=== PATIENT | male | born 1980 | race American Indian/Alaskan Native ===

== ENCOUNTER 2016-09-30 12:55 | Inpatient (IN) | payer OTHER ==
[2016-09-30] MEDS ORDERED: Sodium Chloride 0.9% 1,000 ML IV STA (13:06)
[2016-09-30 13:30] LABS: BASO # 0.1 K/uL (0.0-0.2); BASO % 0.6 % (0.0-2.0); EOS # 0.3 K/uL (0.0-0.7); EOS % 2.4 % (0.0-4.0); HEMATOCRIT 44.7 % (35.0-51.0); LYMPH # 2.5 K/uL (1.0-4.3); LYMPH % 22.7 % (20.0-40.0); MEAN CELL VOLUME 94.2 fl (80.0-94.0); MEAN CORPUSCULAR HEMOGLOBIN 31.3 pg (27.0-31.0); MEAN CORPUSCULAR HGB CONC 33.2 g/dL (33.0-37.0); MEAN PLATELET VOLUME 8.7 fl (7.2-11.7); MONO % 9.3 % (0.0-10.0); NRBC % 0.1 % (0.0-0.0); WHITE BLOOD COUNT 10.8 K/uL (4.8-10.8)
[2016-09-30 13:32] LABS: ALB/GLOB RATIO 1.3 (1.0-2.1); ALKALINE PHOSPHATASE 70 U/L (38-126); ALT/SGPT 38 U/L (21-72); AST/SGOT 23 U/L (17-59); BLOOD UREA NITROGEN 12 mg/dl (9-20); CALCIUM 9.2 mg/dL (8.4-10.2); CARBON DIOXIDE 26 mmol/L (22-30); CHLORIDE 102 mmol/L (98-107); GFR AFRICAN-AMERICAN > 60; GLUCOSE,RANDOM 92 mg/dL (75-110); LIPASE 39 U/L (23-300); POTASSIUM 4.1 MMOL/L (3.6-5.0); SODIUM 142 mmol/l (132-148); TOTAL PROTEIN 7.6 G/DL (6.3-8.2)
--- NOTE | 2016-09-30 14:18 | ED PDOC ---
HPI: Abdomen Time Seen by Provider: 09/30/16 13:05 Chief Complaint (Nursing): Abdominal Pain Chief Complaint (Provider): Abdominal pain History Per: Patient History/Exam Limitations: no limitations Onset/Duration Of Symptoms: Days (4-5x) Current Symptoms Are (Timing): Still Present Severity: Moderate Location Of Pain/Discomfort: Periumbilical Associated Symptoms: denies: Fever, Vomiting, Diarrhea, Other (weakness, dizziness) Additional Complaint(s): 35 year old male patient with a pertinent medical history of an abscess of the left axilla and skin problems presents to the ED with complaints of lower abdominal wall pain that started 4-5x days ago. He reports that he felt a grape sized mass on his skin near his belly button and there is now redness, pain, and (he thinks) swelling around the umbilical area. He denies having a fever, weakness, dizziness, vomiting, and diarrhea. He also denies having exposure to anyone with abscesses or boils. PMD: Patient does no recall. Past Medical History Reviewed: Historical Data, Nursing Documentation, Vital Signs Vital Signs: Last Vital Signs Temp 98.2 F 09/30/16 12:57 Pulse 102 H 09/30/16 12:57 Resp 16 09/30/16 12:57 BP 131/87 09/30/16 12:57 Pulse Ox 98 09/30/16 14:31 - Medical History PMH: No Chronic Diseases - Surgical History Surgical History: Back Surgery - Family History Family History: States: Unknown Family Hx - Social History Current smoker - smoking cessation education provided: No Alcohol: Social Drugs: Cannabis - Allergies Allergies/Adverse Reactions: Allergies Allergy/AdvReac Type Severity Reaction Status Date / Time No Known Allergies Allergy Verified 09/30/16 12:57 Review of Systems ROS Statement: Except As Marked, All Systems Reviewed And Found Negative Constitutional: Negative for: Fever, Weakness Gastrointestinal: Positive for: Abdominal Pain (lower abdominal wall). Negative for: Vomiting, Diarrhea Neurological: Negative for: Dizziness Physical Exam - Reviewed Nursing Documentation Reviewed: Yes Vital Signs Reviewed: Yes - Physical Exam Appears: Positive for: Well, Non-toxic, No Acute Distress Head Exam: Positive for: ATRAUMATIC, NORMOCEPHALIC Skin: Positive for: Normal Color Cardiovascular/Chest: Positive for: Regular Rate, Rhythm, Chest Non Tender Respiratory: Positive for: Normal Breath Sounds. Negative for: Respiratory Distress Gastrointestinal/Abdominal: Positive for: Tenderness (mild tenderness around umbilicus), Guarding (umbilical area), Other (on abdominal wall 7cm surrounding umbilicus there is erythema) Neurologic/Psych: Positive for: Alert, Oriented (3x) - Laboratory Results Result Diagrams: 09/30/16 13:10 09/30/16 13:10 - ECG O2 Sat by Pulse Oximetry: 98 (RA) Pulse Ox Interpretation: Normal Medical Decision Making Medical Decision Makin:05 Initial impression: 35 year old male with lower abdominal wall pain, rule out abdominal wall abscess. Initial plan: * CT abd and pelvis with IV contrast only * CMP * lipase * CBC with differential * sodium chloride 1,000ml IV 1,000mls/hr * toradol 30mg IV * urinalysis * reevaluation Scribe Attestation: Documented by Yara Clinton, acting as a scribe for Sal Junior III, MD. Provider Scribe Attestation: All medical record entries made by the Scribe were at my direction and personally dictated by me. I have reviewed the chart and agree that the record accurately reflects my personal performance of the history, physical exam, medical decision making, and the department course for this patient. I have also personally directed, reviewed, and agree with the discharge instructions and disposition. Disposition - Clinical Impression Clinical Impression: Cellulitis of abdominal wall - Patient ED Disposition Is Patient to be Admitted: Transfer of Care Counseled Patient/Family Regarding: Studies Performed - Disposition Disposition: Transfer of Care Disposition Time: 14:46 Condition: STABLE Patient Signed Over To: Devin Magallon Handoff Comments: pending CT report and dispo/re-eval
[2016-09-30] MEDS ORDERED: Piperacillin/Tazobact 4.5 GM in Sodium Chloride 0.9% 100 ML IVPB STA (14:31)
[2016-09-30 15:07] LABS: RBC URINE 3 /hpf (0-3); URINE BACTERIA RARE (<OCC); URINE BILIRUBIN NEGATIVE (NEGATIVE); URINE BLOOD NEGATIVE (NEGATIVE); URINE COLOR YELLOW (YELLOW); URINE GLUCOSE (UA) NEG (Normal); URINE KETONE TRACE mg/dL (NEGATIVE); URINE LEUKOCYTE ESTERASE NEG Leu/uL (Negative); URINE PROTEIN 30 mg/dL (NEGATIVE); URINE UROBILINOGEN 0.2-1.0 mg/dL (0.2-1.0); WBC URINE 3 /hpf (0-5)
[2016-09-30] MEDS ORDERED: Iohexol 300 100 ML IJ ONE (17:23)
[2016-09-30] MEDS ORDERED: Sodium Chloride 0.9% 50 ML IV ONE (17:24)
--- NOTE | 2016-09-30 18:03 | CT ---
PROCEDURE: CT Abdomen and Pelvis with contrast HISTORY: abdominal wall cellulitis r/o abscess COMPARISON: None. TECHNIQUE: Contrast dose: 100 cc Radiation dose: Total exam DLP = 1331 mGy-cm. FINDINGS: LOWER THORAX: Evaluation of the lung bases reveals mild subsegmental atelectasis. No infiltrate or nodule is seen. No pericardial effusion is seen. No pleural effusion is noted. Distal esophagus is unremarkable. LIVER: Minor fatty infiltration is seen. No focal liver mass or intrahepatic ductal dilatation is noted. GALLBLADDER AND BILE DUCTS: Unremarkable. PANCREAS: Unremarkable. No gross lesion or ductal dilatation. SPLEEN: Unremarkable. ADRENALS: Unremarkable. No mass. KIDNEYS AND URETERS: Unremarkable. No hydronephrosis. No solid mass. VASCULATURE: Unremarkable. No aortic aneurysm. BOWEL: Unremarkable. No obstruction. No gross mural thickening. No pericolonic inflammatory change is seen. No small bowel dilatation or small bowel obstruction is noted. APPENDIX: Normal appendix. PERITONEUM: Unremarkable. No free fluid. No free air. LYMPH NODES: Unremarkable. No enlarged lymph nodes. BLADDER: Unremarkable. REPRODUCTIVE: Unremarkable. BONES: Minor degenerative changes are seen in the spine. Bony structures are otherwise unremarkable. OTHER FINDINGS: Evaluation of the anterior abdominal wall with special attention to the umbilical region reveals evidence of moderate inflammatory change and thickening in the umbilical and periumbilical region extending towards the anterior abdominal wall. There is a small subtle area of low density fluid seen in this region with small peripheral enhancement on axial images 106 through 110 and seen on sagittal images 91 through 94. This measures 2.5 centimeters x 1.5 centimeters by 1.4 centimeters. This is consistent with small abscess in this region. Induration in the subcutaneous fat extends both superiorly and inferiorly from this region. No appreciable bowel is noted extending from this area. Minimal hernia is seen in this region. No abnormal collection is seen in the rectus musculature. IMPRESSION: Periumbilical subcutaneous cellulitis with moderate inflammatory change. There is a small peripherally enhancing low-density abscess seen posteriorly within the area of inflammation at the level of the umbilicus. There may be some subtle vasculature extending from the intra abdominal region to this area on the sagittal images. Small amount of thrombus accounting for the low density is not excluded. Remainder of the examination is unremarkable. No bowel is seen extending into this region of the umbilicus. No inflammatory process in the abdomen or pelvis.
--- NOTE | 2016-09-30 18:38 | ED PDOC ---
- Laboratory Results Result Diagrams: 09/30/16 13:10 09/30/16 13:10 - ECG O2 Sat by Pulse Oximetry: 98 (RA) Disposition - Clinical Impression Clinical Impression: Abdominal wall cellulitis, Abscess of abdominal wall - POA Present On Arrival: None - Disposition Disposition: Hospitalized as Observation Patient Disposition Time: 18:38 Condition: STABLE
--- NOTE | 2016-09-30 20:24 | CP.PCM.HP ---
History of Present Illness - History of Present Illness History of Present Illness: 35 yo male with no significant PMH came in because of mid-umbilical pain since 3 days ago ago accompanied with redness on iraj-umbilical area. He claimed it started as a small cyst above the umbilicus 4 days ago followed with swelling, redness and pain the next day. Denied fever or chills. Present on Admission - Present on Admission Any Indicators Present on Admission: No History of DVT/PE: No History of Uncontrolled Diabetes: No Urinary Catheter: No Decubitus Ulcer Present: No Review of Systems - Review of Systems All systems: reviewed and no additional remarkable complaints except (aside from those mentioned above, 12 point system review were negative by me) Past Patient History - Infectious Disease Hx of Infectious Diseases: None - Tetanus Immunizations Tetanus Immunization: Unknown - Past Medical History & Family History Past Medical History?: No - Past Social History Alcohol: Social Drugs: Cannabis - PSYCHIATRIC Hx Substance Use: No - SURGICAL HISTORY Hx Surgeries: Yes - ANESTHESIA Hx Anesthesia: Yes Meds Allergies/Adverse Reactions: Allergies Allergy/AdvReac Type Severity Reaction Status Date / Time No Known Allergies Allergy Verified 09/30/16 12:57 Physical Exam - Constitutional Appears: No Acute Distress - Head Exam Head Exam: ATRAUMATIC - Eye Exam Eye Exam: absent: Scleral icterus - ENT Exam ENT Exam: Mucous Membranes Moist - Neck Exam Neck exam: Negative for: Meningismus - Respiratory Exam Respiratory Exam: absent: Rhonchi, Wheezes, Respiratory Distress - Cardiovascular Exam Cardiovascular Exam: REGULAR RHYTHM, +S1, +S2 - GI/Abdominal Exam GI & Abdominal Exam: Soft, Tenderness (redness and tenderness on iraj-umbilical area) - Rectal Exam Rectal Exam: Deferred - Extremities Exam Extremities exam: Negative for: pedal edema - Back Exam Back exam: absent: tenderness - Neurological Exam Neurological exam: Alert, Oriented x3 - Psychiatric Exam Psychiatric exam: Normal Affect - Skin Skin Exam: Erythema (iraj-umbilical area) Results - Vital Signs Recent Vital Signs: Last Vital Signs Temp 97.6 F 09/30/16 19:29 Pulse 62 09/30/16 19:29 Resp 16 09/30/16 19:29 BP 133/75 09/30/16 19:29 Pulse Ox 100 09/30/16 19:29 - Labs Result Diagrams: 09/30/16 13:10 09/30/16 13:10 Assessment & Plan (1) Abdominal wall cellulitis Status: Acute Comment: place on observation. keep NPO from midnight. surgical consult called by ER, for I&D in am. blood culture x 2. continue Zosyn 3.375gm IV q 6hrs. Morphine 2mg IV q 4hrs prn for pain
--- NOTE | 2016-09-30 21:05 | CP.PCM.CON ---
<Antonino Peralta - Last Filed: 09/30/16 21:00> History of Present Illness - History of Present Illness History of Present Illness: General Surgery Consult Re: periumbilical abscess HPI: 35M presenting with periumbilical pain x 3 days. Progressively worse, with increasing redness up to 10 cm in diameter. First noticed a bume 4 days ago, and then the pain and erythema started. Denies any other symptoms. Pt is currently feeling much better, less tender, with less erythema. PMH: Denies PSH: Denies SH: No tobacco, EtOH. Occasional THC All: NKDA Meds: Denies Review of Systems - Review of Systems All systems: reviewed and no additional remarkable complaints except (as per HPI ) Past Patient History - Infectious Disease Hx of Infectious Diseases: None - Tetanus Immunizations Tetanus Immunization: Unknown - Past Medical History & Family History Past Medical History?: No - Past Social History Alcohol: Social Drugs: Cannabis - PSYCHIATRIC Hx Substance Use: No - SURGICAL HISTORY Hx Surgeries: Yes - ANESTHESIA Hx Anesthesia: Yes Meds Allergies/Adverse Reactions: Allergies Allergy/AdvReac Type Severity Reaction Status Date / Time No Known Allergies Allergy Verified 09/30/16 12:57 - Medications Medications: Current Medications Sodium Chloride (Sodium Chloride 0.9%) 1,000 mls @ 100 mls/hr IV .Q10H [facility] Piperacillin Sod/Tazobactam (Sod 3.375 gm/ Sodium Chloride) 100 mls @ 100 mls/ hr IVPB Q6 [facility] Morphine Sulfate (Morphine) 2 mg IVP Q4 PRN PRN Reason: Pain, moderate (4-7) Physical Exam - Constitutional Appears: Non-toxic, No Acute Distress - Head Exam Head Exam: ATRAUMATIC, NORMOCEPHALIC - Eye Exam Eye Exam: EOMI. absent: Scleral icterus - ENT Exam ENT Exam: Mucous Membranes Moist Additional comments: trachea midline - Respiratory Exam Respiratory Exam: NORMAL BREATHING PATTERN. absent: Respiratory Distress - Cardiovascular Exam Cardiovascular Exam: RRR, +S1, +S2 - GI/Abdominal Exam GI & Abdominal Exam: Mass (small, deep in umbilicus with faint TTP), Soft. absent: Distended, Firm, Guarding, Rigid, Tenderness Additional comments: currently faint erythema - Rectal Exam Rectal Exam: Deferred - Extremities Exam Extremities exam: Positive for: normal capillary refill. Negative for: calf tenderness - Back Exam Back exam: absent: CVA tenderness (L), CVA tenderness (R) - Neurological Exam Neurological exam: Alert, Oriented x3 - Psychiatric Exam Psychiatric exam: Normal Affect, Normal Mood - Skin Skin Exam: Dry, Warm Results - Vital Signs Recent Vital Signs: Last Vital Signs Temp 97.6 F 09/30/16 19:29 Pulse 62 09/30/16 19:29 Resp 16 09/30/16 19:29 BP 133/75 09/30/16 19:29 Pulse Ox 100 09/30/16 19:29 - Labs Result Diagrams: 09/30/16 13:10 09/30/16 13:10 - Imaging and Cardiology CT scan - abdomen Status: Image reviewed by me, Report reviewed by me Assessment & Plan - Assessment and Plan (Free Text) Assessment: 35M with periumbilical abscess Plan: NPO p MN Consent in chart Abx IVF Zofran Morphine To OR tomorrow D/W Dr. Esvin Peralta PGY3 <Johan Mcallister B - Last Filed: 10/03/16 17:02> Results - Vital Signs Recent Vital Signs: Last Vital Signs Temp 98.9 F 10/02/16 07:59 Pulse 65 10/02/16 07:59 Resp 20 10/02/16 07:59 BP 136/88 10/02/16 07:59 Pulse Ox 98 10/02/16 07:59 - Labs Result Diagrams: 10/02/16 05:50 10/01/16 05:55 Attending/Attestation - Attestation I have personally seen and examined this patient.: Yes I have fully participated in the care of the patient.: Yes I have reviewed all pertinent clinical information: Yes Notes (Text): 10/03/16 16:54 Pt was seen and examined at bedside on 10/01/16 Agree with above note and assessment. Pt with Abdominal wall cellulitis and abscess Pt would need I & D of abscess with Debridement of Abdominal wall Consent Plan d.w pt in detail Risk and benefit explained in detail.
[2016-10-01] MEDS: Piperacillin/Tazobact 3.375 GM in Sodium Chloride 0.9% 100 ML IVPB SCH ×5 (00:27→21:56)
[2016-10-01] MEDS: Sodium Chloride 0.9% 1,000 ML IV SCH ×2 (00:40→08:57)
[2016-10-01 07:11] LABS: BASO # 0.1 K/uL (0.0-0.2); BASO % 0.7 % (0.0-2.0); EOS # 0.3 K/uL (0.0-0.7); EOS % 3.2 % (0.0-4.0); HEMATOCRIT 40.2 % (35.0-51.0); LYMPH # 2.8 K/uL (1.0-4.3); LYMPH % 27.8 % (20.0-40.0); MEAN CELL VOLUME 93.9 fl (80.0-94.0); MEAN PLATELET VOLUME 8.9 fl (7.2-11.7); MONO # 1.1 K/uL (0.0-0.8); MONO % 10.9 % (0.0-10.0); NEUT # 5.7 K/uL (1.8-7.0); NEUT % 57.4 % (50.0-75.0); NRBC % 0.1 % (0.0-0.0); RED CELL DISTRIBUTION WIDTH 13.2 % (11.5-14.5); WHITE BLOOD COUNT 9.9 K/uL (4.8-10.8)
[2016-10-01 07:26] LABS: PARTIAL THROMBOPLASTIN TIME 27.1 SECONDS (23.3-32.5)
[2016-10-01 07:35] LABS: BLOOD UREA NITROGEN 13 mg/dl (9-20); CALCIUM 8.7 mg/dL (8.4-10.2); CARBON DIOXIDE 28 mmol/L (22-30); CHLORIDE 102 mmol/L (98-107); GFR AFRICAN-AMERICAN > 60; GLUCOSE,RANDOM 89 mg/dL (75-110); POTASSIUM 4.2 MMOL/L (3.6-5.0); SODIUM 142 mmol/l (132-148)
[2016-10-01] MEDS ORDERED: Propofol 10 mg/ml Inj (20 ML) ONE (13:26)
[2016-10-01] MEDS ORDERED: Midazolam 2 MG/2 ML VIAL ONE (13:27)
[2016-10-01] MEDS ORDERED: Lidocaine 1% Inj (20ml) ONE (13:29)
[2016-10-01] MEDS ORDERED: Bupivacaine 0.5% Inj(30mL) ONE (13:29)
[2016-10-01] MEDS ORDERED: Lidocaine 1% Inj (20ml) IJ ONE (13:55)
[2016-10-01] MEDS ORDERED: Bupivacaine 0.5% Inj(30mL) IJ ONE (13:55)
--- NOTE | 2016-10-01 15:00 | PCM.SURG1 ---
Surgeon's Initial Post Op Note - Surgeon's Notes Surgeon: Esvin Creche Attendant: David PGY-2, Clint PGY-1 Type of Anesthesia: General LMA Pre-Operative Diagnosis: iraj-umbilical abscess Operative Findings: see operative report Post-Operative Diagnosis: see operative report Operation Performed: I&D of abscess. excision of possible urachal cyst wall. debridement of cyst wall Specimen/Specimens Removed: debrided urachal cyst wall. skin Estimated Blood Loss: EBL {In ML}: 15 Blood Products Given: N/A Drains Used: No Drains Post-Op Condition: Good Date of Surgery/Procedure: 10/01/16 Time of Surgery/Procedure: 14:00
[2016-10-01] MEDS ORDERED: Lactated Ringer's 1,000 ML IV ONE (15:03)
--- NOTE | 2016-10-01 15:59 | OP ---
PROCEDURE DATE: 10/01/2016 PREOPERATIVE DIAGNOSIS: Abdominal wall cellulitis and abscess with a possible underlying infected cy st. POSTOPERATIVE DIAGNOSES: 1. Abdominal wall abscess. 2. Abdominal wall cellulitis. 3. Infected urachal cyst. PROCEDURE DONE: 1. Incision and drainage of the abscess. 2. Debridement of the abdominal wall, approximately 3 x 3 cm size. 3. Excision of urachal cyst, approximately 4 x 5 cm size. SURGEON: Dr. Mcallister ANESTHESIA: General anesthesia with LMA. ESTIMATED BLOOD LOSS: EBL is around 10 mL. DRAINS: None. PATHOLOGY: The pus was sent for culture and sensitivity. Debrided abdominal wall was sent for the p athology. The cyst wall was sent for the pathology. INTRAOPERATIVE FINDINGS: The patient had approximately 4 x 5 cm infected urachal cyst with celluliti s and abscess of the abdominal wall. INTRAOPERATIVE STEPS: This 35-year-old male was diagnosed with abdominal wall cellulitis with absces s with possible underlying cyst and patient was brought to the OR, placed supine on the operating tab le. After induction of the anesthesia, abdomen was prepped and draped in the usual sterile fashion. The vertical midline incision was made in the umbilical area of approximately 5 cm size. The 2 late ral flaps were created and the infected cyst with abscess was identified. The abscess was drained. Pus was sent for the culture and sensitivity. The abdominal wall surrounding the abscess was debride d and it was sent off the table for the pathology and the cyst wall was completely excised up to the root of the umbilicus. After proper irrigation, the hemostasis was achieved and wound was closed in 2 layers, the subQ with 2-0 Vicryl, skin with a 4-0 Monocryl and dry sterile dressing was applied. T he patient tolerated procedure well. Count of instruments and gauze was correct. There was no appar ent complication. Johan Mcallister MD cc: [id number] TT: 10/01/2016 15:59:09
--- NOTE | 2016-10-01 16:38 | CP.PCM.PN ---
Subjective - Date & Time of Evaluation Date of Evaluation: 10/01/16 Time of Evaluation: 17:00 - Subjective Subjective: Patient was seen and evaluated bedside. Feeling nauseated and had 1 episode of vomiting. Still with some periumbilical pain Hemodynamicallty stable, afebrile Objective - Vital Signs/Intake and Output Vital Signs (last 24 hours): Temp Pulse Resp BP Pulse Ox 99 F 85 20 177/97 H 94 L 10/01/16 15:03 10/01/16 15:03 10/01/16 15:03 10/01/16 15:03 10/01/16 15:03 - Medications Medications: Current Medications Sodium Chloride (Sodium Chloride 0.9%) 1,000 mls @ 100 mls/hr IV .Q10H [facility] Last Admin: 10/01/16 08:57 Dose: 100 mls/hr Piperacillin Sod/Tazobactam (Sod 3.375 gm/ Sodium Chloride) 100 mls @ 100 mls/ hr IVPB Q6 [facility] Last Admin: 10/01/16 08:59 Dose: 100 mls/hr Lactated Ringer's (Lactated Ringer's) 1,000 mls @ 50 mls/hr IV .Q20H [facility] Morphine Sulfate (Morphine) 2 mg IVP Q4 PRN PRN Reason: Pain, moderate (4-7) Last Admin: 10/01/16 00:44 Dose: 2 mg Morphine Sulfate (Morphine) 2 mg IVP Q10M PRN PRN Reason: Pain, severe (8-10) Stop: 10/01/16 17:09 Last Admin: 10/01/16 16:00 Dose: 2 mg Ondansetron HCl (Zofran Inj) 4 mg IVP Q4 PRN PRN Reason: Nausea/Vomiting - Labs Labs: 10/01/16 05:55 10/01/16 05:55 PT 10.7 SECONDS (9.6-11.2) 10/01/16 05:55 INR 1.03 (0.92-1.08) 10/01/16 05:55 APTT 27.1 SECONDS (23.3-32.5) 10/01/16 05:55 - Constitutional Appears: Non-toxic, No Acute Distress - Head Exam Head Exam: ATRAUMATIC, NORMAL INSPECTION, NORMOCEPHALIC - Eye Exam Eye Exam: EOMI, Normal appearance, PERRL Pupil Exam: NORMAL ACCOMODATION - ENT Exam ENT Exam: Mucous Membranes Moist, Normal Exam - Neck Exam Neck Exam: Full ROM, Normal Inspection - Respiratory Exam Respiratory Exam: Clear to Ausculation Bilateral, NORMAL BREATHING PATTERN. absent: Rales, Rhonchi, Wheezes - Cardiovascular Exam Cardiovascular Exam: REGULAR RHYTHM, RRR, +S1, +S2. absent: JVD - GI/Abdominal Exam GI & Abdominal Exam: Soft, Tenderness (with palpation superior to umbilicus), Normal Bowel Sounds. absent: Distended, Guarding, Rebound Additional comments: periumbilical dressing in place - Rectal Exam Rectal Exam: Deferred - Extremities Exam Extremities Exam: Full ROM, Normal Capillary Refill, Normal Inspection. absent : Calf Tenderness, Pedal Edema - Back Exam Back Exam: NORMAL INSPECTION - Neurological Exam Neurological Exam: Alert, Awake, CN II-XII Intact, Oriented x3 - Psychiatric Exam Psychiatric exam: Normal Affect, Normal Mood - Skin Skin Exam: Dry, Intact, Normal Color, Warm Assessment and Plan - Assessment and Plan (Free Text) Assessment: 35 yo male with no significant PMH came in because of mid-umbilical pain since 3 days ago ago accompanied with redness on iraj-umbilical area. He claimed it started as a small cyst above the umbilicus 4 days ago followed with swelling, redness and pain the next day. Denied fever or chills. Patient admitted for abdominal wall abscess and cellulitis and started on IV antbiotics. surgery consulted 1. Abdominal wall abscess and cellulitis to periumbilical area s/p I& D of abscess and urachal cyst excision Continue Zosyn IV and start Vanco Continue pain management Zofran PRN for nausea possible d/c in AM
[2016-10-01] MEDS: Lactated Ringer's 1,000 ML IV SCH (17:24)
[2016-10-02] MEDS: Piperacillin/Tazobact 3.375 GM in Sodium Chloride 0.9% 100 ML IVPB SCH ×2 (04:39→09:29)
[2016-10-02 06:43] LABS: HEMATOCRIT 41.3 % (35.0-51.0); MEAN CELL VOLUME 93.5 fl (80.0-94.0); MEAN CORPUSCULAR HEMOGLOBIN 31.2 pg (27.0-31.0); MEAN CORPUSCULAR HGB CONC 33.4 g/dL (33.0-37.0); WHITE BLOOD COUNT 11.1 K/uL (4.8-10.8)
[2016-10-02 06:59] VITALS: O2SAT 98
--- NOTE | 2016-10-02 07:18 | CP.PCM.PN ---
Subjective - Date & Time of Evaluation Date of Evaluation: 10/02/16 Time of Evaluation: 06:45 - Subjective Subjective: GENERAL SURGERY NOTE FOR DR. MCALLISTER: 35 yo male pt seen at bedside this morning 1 day s/p I&D of abscess and excision of urachal cyst. Pt seen resting comfortably in bed at time of visit. Reports 1 episode of vomiting last night after drinking a pepsi. Denies any subsequent nausea or vomiting overnight. Admits to some mild abdominal pain today, but says pain meds are helping. Tolerating diet, passing flatus. Denies f /c/sob. Denies any other problems at this time. Objective - Vital Signs/Intake and Output Vital Signs (last 24 hours): Temp Pulse Resp BP Pulse Ox 98.7 F 59 L 19 144/87 98 10/02/16 05:30 10/02/16 05:30 10/02/16 05:30 10/02/16 05:30 10/02/16 05:30 - Medications Medications: Current Medications Sodium Chloride (Sodium Chloride 0.9%) 1,000 mls @ 100 mls/hr IV .Q10H [facility] Last Admin: 10/01/16 08:57 Dose: 100 mls/hr Piperacillin Sod/Tazobactam (Sod 3.375 gm/ Sodium Chloride) 100 mls @ 100 mls/ hr IVPB Q6 [facility] Last Admin: 10/02/16 04:39 Dose: 100 mls/hr Lactated Ringer's (Lactated Ringer's) 1,000 mls @ 50 mls/hr IV .Q20H [facility] Last Admin: 10/01/16 17:24 Dose: 50 mls/hr Vancomycin HCl 1 gm/ Sodium (Chloride) 250 mls @ 166.667 mls/hr IVPB DAILY [facility] Last Admin: 10/01/16 17:55 Dose: 166.667 mls/hr Morphine Sulfate (Morphine) 2 mg IVP Q4 PRN PRN Reason: Pain, moderate (4-7) Last Admin: 10/01/16 17:19 Dose: 2 mg Ondansetron HCl (Zofran Inj) 4 mg IVP Q4 PRN PRN Reason: Nausea/Vomiting - Labs Labs: 10/02/16 05:50 PT 10.7 SECONDS (9.6-11.2) 10/01/16 05:55 INR 1.03 (0.92-1.08) 10/01/16 05:55 APTT 27.1 SECONDS (23.3-32.5) 10/01/16 05:55 - Constitutional Appears: Well, Non-toxic, No Acute Distress - Head Exam Head Exam: ATRAUMATIC, NORMAL INSPECTION - Eye Exam Eye Exam: EOMI, Normal appearance - Respiratory Exam Respiratory Exam: NORMAL BREATHING PATTERN. absent: Respiratory Distress - Cardiovascular Exam Cardiovascular Exam: REGULAR RHYTHM - GI/Abdominal Exam GI & Abdominal Exam: Soft, Tenderness (slight iraj-umbilical tenderness ). absent: Distended, Firm, Guarding, Rigid Additional comments: Bandage c/d/i to umbilicus, no drainage noted - Neurological Exam Neurological Exam: Alert, Awake, Oriented x3 - Psychiatric Exam Psychiatric exam: Normal Affect, Normal Mood - Skin Skin Exam: Normal Color, Warm Assessment and Plan - Assessment and Plan (Free Text) Assessment: 35 yo male patient 1 day s/p I&D of abscess and excision of urachal cyst. Plan: -Pt seen and evaluated at bedside. -VSS, afebrile -Cleared for discharge home per surgery -Recommend d/c on po Augmentin -F/u w/ Dr. Mcallister in the office. -Plan discussed w/ Dr. Mcallister -Buffy Roque, PGY-1
[2016-10-02 08:00] VITALS: BP 136/88; PULSE 65; RESP 20; TEMP 98.9
[2016-10-02] MEDS: Lactated Ringer's 1,000 ML IV SCH (12:40)
[2016-10-02] MEDS: Sodium Chloride 0.9% 1,000 ML IV SCH (12:40)
--- NOTE | 2016-10-02 13:37 | CP.PCM.DIS ---
Provider - Provider Date of Admission: 10/01/16 18:39 Attending physician: Bryan Sanchez MD Consults: Surgery consult Time Spent in preparation of Discharge (in minutes): 15 Hospital Course - Lab Results Lab Results: Most Recent Lab Values WBC 11.1 K/uL (4.8-10.8) H 10/02/16 05:50 RBC 4.42 Mil/uL (4.40-5.90) 10/02/16 05:50 Hgb 13.8 g/dL (12.0-18.0) 10/02/16 05:50 Hct 41.3 % (35.0-51.0) 10/02/16 05:50 MCV 93.5 fl (80.0-94.0) 10/02/16 05:50 MCH 31.2 pg (27.0-31.0) H 10/02/16 05:50 MCHC 33.4 g/dL (33.0-37.0) 10/02/16 05:50 RDW 13.0 % (11.5-14.5) 10/02/16 05:50 Plt Count 228 K/uL (130-400) 10/02/16 05:50 MPV 8.9 fl (7.2-11.7) 10/01/16 05:55 Neut % (Auto) 57.4 % (50.0-75.0) 10/01/16 05:55 Lymph % (Auto) 27.8 % (20.0-40.0) 10/01/16 05:55 [place] % (Auto) 10.9 % (0.0-10.0) H 10/01/16 05:55 Eos % (Auto) 3.2 % (0.0-4.0) 10/01/16 05:55 Baso % (Auto) 0.7 % (0.0-2.0) 10/01/16 05:55 Neut # 5.7 K/uL (1.8-7.0) 10/01/16 05:55 Lymph # 2.8 K/uL (1.0-4.3) 10/01/16 05:55 [place] # 1.1 K/uL (0.0-0.8) H 10/01/16 05:55 Eos # 0.3 K/uL (0.0-0.7) 10/01/16 05:55 Baso # 0.1 K/uL (0.0-0.2) 10/01/16 05:55 PT 10.7 SECONDS (9.6-11.2) 10/01/16 05:55 INR 1.03 (0.92-1.08) 10/01/16 05:55 APTT 27.1 SECONDS (23.3-32.5) 10/01/16 05:55 Sodium 142 mmol/l (132-148) 10/01/16 05:55 Potassium 4.2 MMOL/L (3.6-5.0) 10/01/16 05:55 Chloride 102 mmol/L (98-107) 10/01/16 05:55 Carbon Dioxide 28 mmol/L (22-30) 10/01/16 05:55 Anion Gap 16 (10-20) 10/01/16 05:55 BUN 13 mg/dl (9-20) 10/01/16 05:55 Creatinine 0.9 mg/dL (0.8-1.5) 10/01/16 05:55 Est GFR ( Amer) > 60 10/01/16 05:55 Est GFR (Non-Af Amer) > 60 10/01/16 05:55 Random Glucose 89 mg/dL (75-110) 10/01/16 05:55 Calcium 8.7 mg/dL (8.4-10.2) 10/01/16 05:55 Total Bilirubin 2.0 mg/dl (0.2-1.3) H 09/30/16 13:10 AST 23 U/L (17-59) 09/30/16 13:10 ALT 38 U/L (21-72) 09/30/16 13:10 Alkaline Phosphatase 70 U/L (38-126) 09/30/16 13:10 Total Protein 7.6 G/DL (6.3-8.2) 09/30/16 13:10 Albumin 4.3 g/dL (3.5-5.0) 09/30/16 13:10 Globulin 3.3 gm/dL (2.2-3.9) 09/30/16 13:10 Albumin/Globulin Ratio 1.3 (1.0-2.1) 09/30/16 13:10 Lipase 39 U/L (23-300) 09/30/16 13:10 Urine Color Yellow (YELLOW) 09/30/16 14:40 Urine Clarity Slighty-cloudy (Clear) 09/30/16 14:40 Urine pH 6.0 (5.0-8.0) 09/30/16 14:40 Ur Specific [place] 1.027 (1.003-1.030) 09/30/16 14:40 Urine Protein 30 mg/dL (NEGATIVE) 09/30/16 14:40 Urine Glucose (UA) Neg mg/dL (Normal) 09/30/16 14:40 Urine Ketones Trace mg/dL (NEGATIVE) 09/30/16 14:40 Urine Blood Negative (NEGATIVE) 09/30/16 14:40 Urine Nitrate Negative (NEGATIVE) 09/30/16 14:40 Urine Bilirubin Negative (NEGATIVE) 09/30/16 14:40 Urine Urobilinogen 0.2-1.0 mg/dL (0.2-1.0) 09/30/16 14:40 Ur Leukocyte Esterase Neg Ruby/uL (Negative) 09/30/16 14:40 Urine RBC (Auto) 3 /hpf (0-3) 09/30/16 14:40 Urine Microscopic WBC 3 /hpf (0-5) 09/30/16 14:40 Ur Squamous Epith Cells < 1 /hpf (0-5) 09/30/16 14:40 Urine Bacteria Rare (<OCC) 09/30/16 14:40 - Hospital Course Hospital Course: 35 yo male with no significant PMH came in because of mid-umbilical pain since 3 days ago ago accompanied with redness on iraj-umbilical area. He claimed it started as a small cyst above the umbilicus 4 days ago followed with swelling, redness and pain the next day. Denied fever or chills. Patient admitted for abdominal wall abscess and cellulitis and started on IV antibiotics. Surgery consulted and patient underwent I&d and urachal cyst excision. Patient doing wll todau and cleared by surgery for discharge on PO augmentin for 7 more days. Will d/c patient home with follow up with surgeon in 1 week 1. Abdominal wall abscess and cellulitis to periumbilical area s/p I& D of abscess and urachal cyst excision received Zosyn IV and Vanco Continue pain management Zofran PRN for nausea Will discharge wally etoeday on Augmentin PO for 7 days Follow up with Surgeon in 1week Discharge Exam - Head Exam Head Exam: ATRAUMATIC, NORMAL INSPECTION - Eye Exam Eye Exam: EOMI, Normal appearance, PERRL Pupil Exam: NORMAL ACCOMODATION - ENT Exam ENT Exam: Mucous Membranes Moist, Normal Exam - Neck Exam Neck exam: Full Rom, Normal Inspection - Respiratory Exam Respiratory Exam: Clear to PA & Lateral, NORMAL BREATHING PATTERN. absent: Rales, Rhonchi, Wheezes - Cardiovascular Exam Cardiovascular Exam: REGULAR RHYTHM, RRR, +S1, +S2. absent: JVD - GI/Abdominal Exam GI & Abdominal Exam: Normal Bowel Sounds, Soft, Tenderness (mild tenderness with palpation inferior to umbilicus). absent: Distended, Guarding, Rebound - Rectal Exam Rectal Exam: Deferred - Extremities Exam Extremities exam: normal capillary refill, normal inspection, pedal pulses present - Back Exam Back exam: NORMAL INSPECTION - Neurological Exam Neurological exam: Alert, CN II-XII Intact, Oriented x3, Reflexes Normal - Psychiatric Exam Psychiatric exam: Normal Affect, Normal Mood - Skin Skin Exam: Dry, Intact, Normal Color, Warm Discharge Plan - Discharge Medications Prescriptions: Amoxicillin/Clavulanate [Augmentin 875 MG-125 MG] 1 tab PO BID #[id number] tab - Follow Up Plan Condition: STABLE Disposition: HOME/ ROUTINE Patient education suggested?: Yes Instructions: Abscess (GEN), Incision and Drainage (DC) Referrals: Johan Mcallister MD [Staff Provider] - 1 Week
== END 2016-10-02 13:20 | disposition home or self-care (01) | DRG 270 ==
LOC: H.ER 12:55 → H.ERHOLD 18:39 → H.MEDSURG1 21:15 → OBSVTOIN 10-01 18:39
PROC: 0WBFXZZ Excision of Abdominal Wall, External Approach (ICD-10-PCS; 2016-10-01)
PROC: 0W9F0ZZ Drainage of Abdominal Wall, Open Approach (ICD-10-PCS; principal; 2016-10-01 14:00)
DX: L03.311 Cellulitis of abdominal wall (principal); Q64.4 Malformation of urachus; L03.316 Cellulitis of umbilicus